=== PATIENT | female | born 1975 | race African-American/Black ===

== ENCOUNTER 2018-02-07 18:57 | Observation (INO) ==
[2018-02-07] MEDS ORDERED: ASPIRIN 325 MG TABLET PO STA (19:49)
[2018-02-07] MEDS ORDERED: ASPIRIN 325 MG TABLET ONE (20:17)
[2018-02-07 20:29] LABS: Basophils % 0.5 % (0.0-0.8); Eosinophils # 0.1 10*3/uL (0.0-0.87); Eosinophils % 1.5 % (0.00-10.9); Hematocrit 35.8 VOL% (35.7-47.0); Hemoglobin 11.9 GM/DL (12.0-16.0); Immature Granulocytes % 0.3 %; Immature Granulocytes Absolute 0.02 #; Lymphocytes # 1.3 10*3/uL (1.4-4.0); Lymphocytes % 21.4 % (21.3-54.2); Mean Corpuscular HGB Conc 33.2 GM/DL (32-36); Mean Corpuscular Hemoglobin 28 PG (27-34); Mean Corpuscular Volume 84.8 FL (87-102); Mean Platelet Volume 10.7 FL (9.6-12.0); Monocytes # 0.4 10*3/uL (0.11-0.8); Neutrophils # 4.1 10*3/uL (1.4-7.4); Neutrophils % 70.3 % (38.7-73.9); Platelet Count 282 T/CUMM (130-400); Red Blood Count 4.22 MC/CUMM (3.8-5.5); Red Cell Distribution Width 13.7 % (9.3-17.3); White Blood Count 5.9 T/CUMM (4-12)
[2018-02-07 20:40] LABS: Bilirubin,Total 0.4 MG/DL (0.2-1.0); Calcium 8.9 MG/DL (8.5-10.1); Osmolality,Calculated 274.5 MOS/KG (273-304); Total Protein 7.6 G/DL (6.4-8.3)
[2018-02-07 21:48] LABS: Amorphous Crystals,Urine Occasional /HPF (Few); Apearance,Urine CLEAR (Clear); Bilirubin,Urine Negative (Negative); Blood, Urine Negative (Negative); Glucose,Urine (UA) Negative (Negative); Ketones,Urine 5 mg/dL (Negative); Mucus,Urine Occasional /LPF (Occasional); Nitrite,Urine Negative (Negative); Protein,Urine Negative; RBC,Urine <1 /HPF (0-4); Squamous Epithelial Cell,Urine Occasional /HPF (0-10); Urine Color Straw (Yellow); Urine Specific Gravity 1.006 (1.001-1.035); Urine Urobilinogen < 2.0 EU/DL (0.2-1.0); WBC,Urine <1 /HPF (0-6)
[2018-02-07 22:16] LABS: INR 1.1; PT Patient Result 11.9 SECS
[2018-02-08] MEDS: ENOXAPARIN 40 MG/0.4 ML SYRINGE SUBCUT SCH (08:53)
[2018-02-08] MEDS: hydroCHLOROthiazide 25 MG TABLET PO SCH (08:53)
[2018-02-08] MEDS: ASPIRIN EC 325 MG TABLET PO SCH (08:53)
[2018-02-08] MEDS: PANTOPRAZOLE 40 MG TABLET PO SCH (08:53)
[2018-02-08] MEDS: ACETAMINOPHEN 325 MG TABLET PO PRN ×2 (16:57→22:15)
[2018-02-09 08:10] VITALS: BP 120/71
[2018-02-09] MEDS: ASPIRIN EC 325 MG TABLET PO SCH (08:54)
[2018-02-09] MEDS: PANTOPRAZOLE 40 MG TABLET PO SCH (08:54)
[2018-02-09] MEDS: hydroCHLOROthiazide 25 MG TABLET PO SCH (08:54)
[2018-02-09] MEDS: ENOXAPARIN 40 MG/0.4 ML SYRINGE SUBCUT SCH (08:55)
== END 2018-02-09 11:02 | disposition home or self-care (01) ==
LOC: N.EDINP 18:57 → N.ED 18:57 → SUATTDRO 02-08 01:52 → N.EDINP 02-08 02:40 → N.TELES 02-08 03:04
PROVIDERS: ADMIT Internal Medicine Cardiovascular Disease; ATTEND Internal Medicine